=== PATIENT | male | born 1985 | race Caucasian/White ===

== ENCOUNTER 2016-08-30 21:50 | Emergency (ER) | payer BC ==
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
--- NOTE | 2016-08-30 23:03 | ED ORDER SUMMARY ---
..... Patient: KOKI BERGER OrderSheet [facility] VisitID: [id number] [address] [place] [address] 31y, M Registration Date/Time: 08/30/2016 ORDER SHEET Weight: 188.2 kg (stated) Allergies: No Known Drug Allergy GENERAL ORDERS: Breathalyzer (22:20 08/30/2016 HBivens A.R.N.P.) (22:57 Serjio R.N.) MEDICATION ORDERS: Tdap IM 0.5 mL (NOW, per protocol) (22:20 08/30/2016 HBivens A.R.N.P.) (22:21 Anjali R.N.) IV FLUIDS: ORDER SHEET NOTES: [Electronically signed by Daniella Agrawal R.N. (23:14 08/30/2016)] [Electronically signed by Lila Kincaid.R.N.PPerry (23:38 08/30/2016)] [Electronically locked/signed by Daniella Agrawal R.N. (23:14 08/30/2016)]
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
--- NOTE | 2016-08-30 23:03 | ED ORDER SUMMARY ---
..... Patient: KOKI BERGER OrderSheet [facility] VisitID: [id number] [address] [place] [address] 31y, M Registration Date/Time: 08/30/2016 ORDER SHEET Weight: 188.2 kg (stated) Allergies: No Known Drug Allergy GENERAL ORDERS: Breathalyzer (22:20 08/30/2016 HBivens A.R.N.P.) (22:57 Serjio R.N.) MEDICATION ORDERS: Tdap IM 0.5 mL (NOW, per protocol) (22:20 08/30/2016 HBivens A.R.N.P.) (22:21 Anjali R.N.) IV FLUIDS: ORDER SHEET NOTES: [Electronically signed by Daniella Agrawal R.N. (23:14 08/30/2016)] [Electronically signed by Lila Kincaid.R.N.PPerry (23:38 08/30/2016)] [Electronically locked/signed by Daniella Agrawal R.N. (23:14 08/30/2016)]
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
--- NOTE | 2016-08-30 23:39 | ED MAR SUMMARY ---
..... Medication Administration Record [facility] [address] [place] [address] Patient: KOKI BERGER Visit ID: [id number] 31y, M Weight: 188.2 kg Height/Length: 72 in BMI: 56.3 ALLERGIES: No Known Drug Allergy Given 22:20 08/30/2016 Daniella Agrawal R.N. Medication Administered: TDAP [IM], Dose: 0.5 mL IM. Medication Ordered: Tdap IM 0.5 mL (NOW, per protocol).
--- NOTE | 2016-08-30 23:39 | ED MED RECONCILIATION SUMMARY ---
Patient: KOKI BERGER Medication Reconciliation Report [facility] VisitID: [id number] [address] [place] [address] 31y, M Registration Date/Time: 08/30/2016 Weight: 188.2 kg Height/Length: 72 in. BMI: 56.3 ALLERGIES: No Known Drug Allergy The patient's Home Medications are listed below: NONE. The source(s) of the original Home Medication information: patient The following Medications were given to the patient in the Emergency Department: TDAP [IM] IM 0.5 mL, administered: 08/30/2016 10:20:00 PM The following Medications were prescribed to the patient: Naproxen 500 mg tablets: take 1 orally every 12 hours as needed for pain. Dispense twenty (20). No refills. -- Lila Kincaid A.R.N.P. Flexeril 10 mg: Take 1 orally every 8 hours as needed for muscle spasm. Dispense twenty (20). No refills. Substitution is permissible. -- Lila Kincaid A.R.N.P.
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
--- NOTE | 2016-08-30 23:39 | ED MED RECONCILIATION SUMMARY ---
Patient: KOKI BERGER Medication Reconciliation Report [facility] VisitID: [id number] [address] [place] [address] 31y, M Registration Date/Time: 08/30/2016 Weight: 188.2 kg Height/Length: 72 in. BMI: 56.3 ALLERGIES: No Known Drug Allergy The patient's Home Medications are listed below: NONE. The source(s) of the original Home Medication information: patient The following Medications were given to the patient in the Emergency Department: TDAP [IM] IM 0.5 mL, administered: 08/30/2016 10:20:00 PM The following Medications were prescribed to the patient: Naproxen 500 mg tablets: take 1 orally every 12 hours as needed for pain. Dispense twenty (20). No refills. -- Lila Kincaid A.R.N.P. Flexeril 10 mg: Take 1 orally every 8 hours as needed for muscle spasm. Dispense twenty (20). No refills. Substitution is permissible. -- Lila Kincaid A.R.N.P.
--- NOTE | 2016-08-30 23:39 | ED MAR SUMMARY ---
..... Medication Administration Record [facility] [address] [place] [address] Patient: KOKI BERGER Visit ID: [id number] 31y, M Weight: 188.2 kg Height/Length: 72 in BMI: 56.3 ALLERGIES: No Known Drug Allergy Given 22:20 08/30/2016 Daniella Agrawal R.N. Medication Administered: TDAP [IM], Dose: 0.5 mL IM. Medication Ordered: Tdap IM 0.5 mL (NOW, per protocol).
== END 2016-08-30 23:10 | disposition home or self-care (01) ==
LOC: ED SRH 21:50
DX: S01.81XA Laceration without foreign body of other part of head, initial encounter (principal); S16.1XXA Strain of muscle, fascia and tendon at neck level, initial encounter; S30.810A Abrasion of lower back and pelvis, initial encounter; V57.0XXA Driver of pick-up truck or van injured in collision with fixed or stationary object in nontraffic accident, initial encounter; Y93.89 Activity, other specified; Y92.410 Unspecified street and highway as the place of occurrence of the external cause; Y99.9 Unspecified external cause status; E11.9 Type 2 diabetes mellitus without complications